=== PATIENT | female | born 1990 | race American Indian/Alaskan Native ===

== ENCOUNTER 2020-05-11 08:05 | Emergency (ER) | payer SELFPAY ==
[2020-05-11 08:16] VITALS: BP 121/73
[2020-05-11 08:32] LABS: Bacteria,Urine 2+ /HPF (Negative); Bilirubin,Urine NEG (Negative); Blood,Urine NEG (Negative); Color,Urine Yellow (Yellow); Mucus,Urine FEW /HPF; Protein,Urine <15 mg/dL mg/dL (Negative); Urobilinogen,Urine < 2.0 mg/dL (<2.0)
[2020-05-11 08:33] LABS: HCG Qualitative,Urine Negative (Negative)
--- NOTE | 2020-05-11 08:46 | Emergency Department Report ---
ED Female HPI - General Chief complaint: Urogenital-Female Stated complaint: YEAST INFECTION Time Seen by Provider: 05/11/20 08:40 Source: patient Mode of arrival: Ambulatory Limitations: No Limitations - History of Present Illness Initial comments: 30-year-old -[place] female presents to the emergency room complaining of burning during urination. Patient states is been going on for about a week she has tried [id number] yeast infection medication thinking that it would help since she was having itching. Patient does admit some mild odor. She denies any unprotected intercourse. She denies any fever chills no abdominal pain vaginal discharge or vaginal bleeding. She denies any past medical history takes no medications on a daily basis and has no known drug allergies. MD Complaint: dysuria Onset/Timin -: week(s) Location: labia Severity: mild Severity scale (0 -10): 0 Consistency: constant Improves with: none Worsens with: urination Are you Now?: No Associated Symptoms: dysuria. denies: vaginal discharge, vaginal bleeding, abdominal pain, nausea/vomiting - Related Data Sexually active: No Previous Rx's Medication Instructions Recorded Last Taken Type Amoxicillin [Trimox CAP] 500 mg PO Q8H 7 Days #21 capsule 05/11/20 Unknown Rx Allergies Allergy/AdvReac Type Severity Reaction Status Date / Time No Known Allergies Allergy Verified 05/11/20 08:11 ED Review of Systems ROS: Stated complaint: YEAST INFECTION Other details as noted in HPI Comment: All other systems reviewed and negative ED Past Medical Hx - Past Medical History Previous Medical History?: No - Surgical History Past Surgical History?: No - Social History Smoking Status: Never Smoker Substance Use Type: None - Medications Home Medications: Home Medications Medication Instructions Recorded Confirmed Last Taken Type Amoxicillin [Trimox CAP] 500 mg PO Q8H 7 Days #21 capsule 05/11/20 Unknown Rx ED Physical Exam - General Limitations: No Limitations General appearance: alert - Head Head exam: Present: atraumatic, normocephalic - Eye Eye exam: Present: normal appearance - Cardiovascular Cardiovascular Exam: Present: regular rate - GI/Abdominal GI/Abdominal exam: Present: soft. Absent: distended - External exam: Present: normal external exam. Absent: erythema, swelling, lesions, lacerations, bleeding - Extremities Exam Extremities exam: Present: normal inspection - Back Exam Back exam: Present: normal inspection - Neurological Exam Neurological exam: Present: alert, oriented X3, normal gait - Psychiatric Psychiatric exam: Present: normal affect, normal mood - Skin Skin exam: Present: warm, dry, intact, normal color. Absent: rash ED Course Vital Signs 05/11/20 05/11/20 08:11 08:13 Temperature 98.2 F 98.2 F Pulse Rate 76 72 Respiratory 16 18 Rate Blood Pressure 121/73 O2 Sat by Pulse 96 100 Oximetry ED Medical Decision Making - Lab Data Laboratory Last Values Urine Color Yellow (Yellow) 05/11/20 08:21 Urine Turbidity Slightly-cloudy (Clear) 05/11/20 08:21 Urine pH 6.0 (5.0-7.0) 05/11/20 08:21 Ur Specific [place] 1.018 (1.003-1.030) 05/11/20 08:21 Urine Protein <15 mg/dl mg/dL (Negative) 05/11/20 08:21 Urine Glucose (UA) Neg mg/dL (Negative) 05/11/20 08:21 Urine Ketones Neg mg/dL (Negative) 05/11/20 08:21 Urine Blood Neg (Negative) 05/11/20 08:21 Urine Nitrite Neg (Negative) 05/11/20 08:21 Urine Bilirubin Neg (Negative) 05/11/20 08:21 Urine Urobilinogen < 2.0 mg/dL (<2.0) 05/11/20 08:21 Ur Leukocyte Esterase Mod (Negative) 05/11/20 08:21 Urine WBC (Auto) 11.0 /HPF (0.0-6.0) H 05/11/20 08:21 Urine RBC (Auto) 8.0 /HPF (0.0-6.0) 05/11/20 08:21 U Epithel Cells (Auto) 13.0 /HPF (0-13.0) 05/11/20 08:21 Urine Bacteria (Auto) 2+ /HPF (Negative) 05/11/20 08:21 Urine Mucus Few /HPF 05/11/20 08:21 Urine HCG, Qual Negative (Negative) 05/11/20 08:21 - Medical Decision Making 30-year-old -[place] female presents to the emergency room complaining of burning during urination. Patient states is been going on for about a week she has tried [id number] yeast infection medication thinking that it would help since she was having itching. Patient does admit some mild odor. She denies any unprotected intercourse. She denies any fever chills no abdominal pa in vaginal discharge or vaginal bleeding. She denies any past medical history takes no medications on a daily basis and has no known drug allergies. Urinalysis shows positive for urinary tract infection. We will treat you with amoxicillin for 7 days. Increase your fluid intake follow-up with [facility] Critical care attestation.: If time is entered above; I have spent that time in minutes in the direct care of this critically ill patient, excluding procedure time. ED Disposition Clinical Impression: UTI (urinary tract infection) Disposition: TO HOME OR SELFCARE Is pt being admited?: No Does the pt Need Aspirin: No Condition: Stable Instructions: Urinary Tract Infection in Women (ED) Additional Instructions: Urinalysis showed you have an infection. Complete antibiotics as prescribed. Be sure to void after intercourse. Increase your water intake. Prescriptions: Amoxicillin [Trimox CAP] 500 mg PO Q8H 7 Days #21 capsule Referrals: [facility] [Provider Group] - 3-5 Days Forms: Work/School Release Form(ED)
== END 2020-05-11 09:02 | disposition home or self-care (01) ==
LOC: ED 08:05
DX: N39.0 Urinary tract infection, site not specified (principal); Z79.899 Other long term (current) drug therapy
CPT/HCPCS: 81001; 81025; 87086; 99283